=== PATIENT | male | born 1980 | race Asian ===

== ENCOUNTER 2021-08-28 16:01 | Emergency (ER) | payer BC, OTHER ==
[~2021-08-28] VITALS: Ht 170.2 cm; Wt 90.7 kg
[2021-08-28] MEDS ORDERED: CYCL10TA9 PO (17:10)
[2021-08-28] MEDS ORDERED: IBUP-1955 PO (17:10)
--- NOTE | 2021-08-28 17:16 | NUR ---
Patient discharged to home in stable condition. Written and verbal after care instructions given. Patient verbalizes understanding of instructions. Stressed follow up or return to ER for worsening s/s.
[2021-08-28 17:17] VITALS: BP 151/87
== END 2021-08-28 17:17 | disposition home or self-care (01) ==
LOC: ER 16:05
DX: S09.90XA Unspecified injury of head, initial encounter (principal); S16.1XXA Strain of muscle, fascia and tendon at neck level, initial encounter; S80.01XA Contusion of right knee, initial encounter; V49.40XA Driver injured in collision with unspecified motor vehicles in traffic accident, initial encounter; Y92.89 Other specified places as the place of occurrence of the external cause
CPT/HCPCS: 70450; 72050; A4663